=== PATIENT | male | born 1950 | race African-American/Black ===

== ENCOUNTER 2020-07-19 12:51 | Emergency (ER) | payer MEDICARE, OTHER ==
[2020-07-19] MEDS ORDERED: Fluorescein Opthalmic Strip ONE (13:17)
[2020-07-19] MEDS ORDERED: Tetracaine 0.5% PF 4 ML BOT ONE (13:17)
== END 2020-07-19 14:19 | disposition home or self-care (01) ==
LOC: CSHERS 12:51
DX: H57.89 Other specified disorders of eye and adnexa (principal); I10 Essential (primary) hypertension; Z79.82 Long term (current) use of aspirin
CPT/HCPCS: 99283

== ENCOUNTER 2020-08-01 18:24 | Emergency (ER) | payer MEDICARE, OTHER ==
[2020-08-01] MEDS ORDERED: Metoprolol Tartrate 50 MG TAB ONE (20:03)
== END 2020-08-01 20:06 | disposition home or self-care (01) ==
LOC: CSHERS 18:24
DX: I10 Essential (primary) hypertension (principal)
CPT/HCPCS: 99283

== ENCOUNTER 2020-08-04 17:05 | Emergency (ER) | payer MEDICARE, OTHER | END 2020-08-04 20:10 | disposition home or self-care (01) | LOC: CSHERS 17:05 | DX: I10 Essential (primary) hypertension (principal) | CPT/HCPCS: 99283 ==